=== PATIENT | male | born 2000 | race Caucasian/White ===

== ENCOUNTER 2021-05-28 01:18 | Emergency (ER) | payer OTHER ==
[2021-05-28] MEDS ORDERED: Oxymetazoline HCl 0.05% (30 ML BOT) ONE (01:51)
== END 2021-05-28 02:08 | disposition home or self-care (01) ==
LOC: ERS 01:18
DX: S02.2XXA Fracture of nasal bones, initial encounter for closed fracture (principal); W50.0XXA Accidental hit or strike by another person, initial encounter; Y93.72 Activity, wrestling
CPT/HCPCS: 99283